=== PATIENT | male | born 1970 | race Caucasian/White ===

== ENCOUNTER 2019-10-05 09:46 | Outpatient (RCR) | payer OTHER, SELFPAY ==
--- NOTE | 2019-10-05 11:01 | [facility].PTOPWND ---
Rehab Outpt Wound Evaluation Rehab OP Wound Evaluation Start: 10/05/19 10:04 Freq: Status: Active Protocol: Document 10/05/19 10:49 EDDI (Rec: 10/05/19 11:01 EDDI [id number]) Electronically Signed By Shubham Smith, PT 10/05/19 10:49 Subjective/History History History Pt is 48 yowm who presents with L loer legs open sores and increased edema x ~ 1 mo with insidious onset of symptoms. He reports he just finished a 3 wk cours of oral abx and he has seen a decrease in the amount of drainage from the wounds, which was large amounts until ~ 2 dyas ago. He reports hx of a serious infection in his legs many years ago and he has suffered from increased edema and hemosiderin staining since that time. He reports PMH of HTN. Subjective Subjective Pt reports no c/o pain, but significant edema and drainage . Wound Eval Wound Left Lateral Ware Wound Type Stasis Ulcer Is This a Chronic Wound Yes Wound Length (cm) 3.4 Wound Width (cm) 2.2 Wound Bed Appearance Beefy Red Percentage Granulated (%) 100 Wound Margins Description Well Defined Surrounding Tissue Appearance Dark Red Edema Type Pitting Edema Degree 2+ Query Text:1+ Trace, Barely Detectable, Rebound 15-30 seconds 2+ Moderate, Slight Indentation, Rebound 10-20 seconds 3+ Deep, Deeper Indentation, Rebound > 30 seconds 4+ Very Deep, Rebound > 60 seconds Edema Appearance Weeping Drainage Description Serous Drainage Amount Moderate Drainage Odor No Odor Wound Topical Solution/Irrigant Saline Irrigant Primary Dressing silicone base layer Wound Secondary Dressing Type Silver Dressing,Absorbant Pad, Gauze Roll/Wrap,Adhering Gauze Roll Comment [facility], optifoam gentle Wound Debridement Method Gauze Wound Debridement Amount of Tissue Minimal Removed Dressing Change Patient Tolerance Tolerated Well Left Medial Ware Wound Type Stasis Ulcer Is This a Chronic Wound
== END 2019-10-05 09:50 | disposition home or self-care (01) ==
LOC: PT 09:46
PROVIDERS: Visit Provider Family Medicine
DX: S81.802D Unspecified open wound, left lower leg, subsequent encounter (principal); I89.0 Lymphedema, not elsewhere classified
CPT/HCPCS: 97162

== ENCOUNTER → 2019-10-05 13:07 | Outpatient (CLI) | payer OTHER, SELFPAY | PROVIDERS: Visit Provider Family Medicine | DX: S81.802A Unspecified open wound, left lower leg, initial encounter (principal) | CPT/HCPCS: 87070; 87077; 87186; 87205 ==